=== PATIENT | female | born 1965 | race Caucasian/White ===

== ENCOUNTER 2016-12-30 03:40 | Emergency (ER) | payer OTHER, BC ==
[2016-12-30] MEDS ORDERED: Diphtheria,Pertussis(Acell),Tetanus Vaccine 0.5 ML Syringe IM ONE (04:05)
[2016-12-30] MEDS ORDERED: Acetaminophen/HYDROcodone 325-5 MG Tab PO ONE (04:06)
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
[2016-12-30] MEDS ORDERED: Silver Sulfadiazine 1% Crm 50 GM Tube TOP ONE (04:24)
[2016-12-30 05:00] VITALS: BP 118/88
== END 2016-12-30 04:45 | disposition home or self-care (01) ==
LOC: MERGE 03:40 → MW.ED 03:40
DX: T21.21XA Burn of second degree of chest wall, initial encounter (principal); T22.00XA Burn of unspecified degree of shoulder and upper limb, except wrist and hand, unspecified site, initial encounter; F17.210 Nicotine dependence, cigarettes, uncomplicated; X10.0XXA Contact with hot drinks, initial encounter; Z23 Encounter for immunization
CPT/HCPCS: 16020; 90471; 90715; 99283; A9270

== ENCOUNTER 2017-08-21 23:23 | Emergency (ER) | payer BC ==
[2017-08-21] MEDS ORDERED: Ketorolac 30 MG/ML SDV IVPUSH ONE (23:36)
[2017-08-21] MEDS ORDERED: Sodium Chloride 0.9% 1,000 ML IV ONE (23:36)
[2017-08-21] MEDS ORDERED: Ondansetron 4 MG/2 ML SDV IVPUSH ONE (23:36)
--- NOTE | 2017-08-21 23:38 | EDM.PDOC ---
ED HPI GENERAL MEDICAL PROBLEM - General Chief Complaint: Abdominal Pain Stated Complaint: ABD PAIN Time Seen by Provider: 08/21/17 23:33 - History of Present Illness INITIAL COMMENTS - FREE TEXT/NARRATIVE: HISTORY AND PHYSICAL: History of present illness: Patient is 52-year-old female presents concern of upper abdominal pain she's had this 1 week she's had some associated nausea she states she had some loose stools earlier week but that's resolved she states it does seem to be related to food she had no fever chills no chest pain or shortness of breath this is localized in her epigastrium and right upper quadrant she has had prior appendectomy she denies other surgery. Review of systems: As per history of present illness and below otherwise all systems reviewed and negative. Past medical history: As per history of present illness and as reviewed below otherwise noncontributory. Surgical history: As per history of present illness and as reviewed below otherwise noncontributory. Social history: No reported history of drug or alcohol abuse. Family history: As per history of present illness and as reviewed below otherwise noncontributory. Physical exam: HEENT: Atraumatic, normocephalic, pupils reactive, negative for conjunctival pallor or scleral icterus, mucous membranes moist, throat clear, neck supple, nontender, trachea midline. Lungs: Clear to auscultation, breath sounds equal bilaterally, chest nontender. Heart: S1S2, regular, negative for clicks, rubs, or JVD. Abdomen: Soft, nondistended, tenderness in epigastrium right upper quadrant to deep palpation no rebound or guarding. Negative for masses or hepatosplenomegaly. Negative for costovertebral tenderness. Pelvis: Stable nontender. Genitourinary: Deferred. Rectal: Deferred. Extremities: Atraumatic, negative for cords or calf pain. Neurovascular unremarkable. Neuro: Awake, alert, oriented. Cranial nerves II through XII unremarkable. Cerebellum unremarkable. Motor and sensory unremarkable throughout. Exam nonfocal. Diagnostics: CBC CMP troponin amylase lipase EKG chest x-ray right upper quadrant ultrasound Therapeutics: Normal saline 1 L bolus and Toradol 31 g IV Zofran for millirems IV Impression: #1 upper abdominal pain Definitive disposition and diagnosis as appropriate pending reevaluation and review of above. Right Upper Abdomen Pain Score (Numeric/FACES): 6 - Related Data Allergies Allergy/AdvReac Type Severity Reaction Status Date / Time No Known Allergies Allergy Verified 08/21/17 23:31 Home Meds: Home Meds . 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 Musculoskeletal History: Reports: None Neurological History: Reports: None Psychiatric History: Reports: None Endocrine/Metabolic History: Reports: None Hematologic History: Reports: None Dermatologic History: Reports: None - Infectious Disease History Infectious Disease History: Reports: None - Past Surgical History HEENT Surgical History: Reports: None Female Surgical History: Reports: None Social & Family History - Family History Family Medical History: Noncontributory - Tobacco Use Smoking Status *Q: Current Every Day Smoker Years of Tobacco use: 30 Packs/Tins Daily: 1 - Recreational Drug Use Recreational Drug Use: No ED ROS GENERAL - Review of Systems Review Of Systems: ROS reveals no pertinent complaints other than HPI. ED EXAM, GENERAL - Physical Exam Exam: See Below (See dictation) Course - Vital Signs Text/Narrative:: I discussed case with patient including nondiagnostic ultrasound of gallbladder patient understands the need for close follow-up with general surgery she'll be prescribed Cipro to be taken as prescribed diet as discussed and return as needed as discussed Last Recorded V/S: Last Vital Signs Temp 36.6 C 08/21/17 23:31 Pulse 69 08/21/17 23:31 Resp 18 08/21/17 23:31 BP 136/94 H 08/21/17 23:31 Pulse Ox 100 08/21/17 23:31 - Orders/Labs/Meds Orders: Active Orders 24 hr Category Date Time Status EKG Documentation Completion [RC] STAT Care 08/21/17 23:35 Active Abdomen Ltd [US] Stat Exams 08/22/17 23:36 Taken Chest 1V Frontal [CR] Stat Exams 08/21/17 23:36 Taken Labs: Laboratory Tests 08/21/17 08/21/17 Range/Units 23:50 23:50 WBC 7.09 (4.0-11.0) K/uL RBC 3.79 L (4.30-5.90) M/uL Hgb 12.1 (12.0-16.0) g/dL Hct 36.2 (36.0-46.0) % MCV 95.5 (80.0-98.0) fL MCH 31.9 (27.0-32.0) pg MCHC 33.4 (31.0-37.0) g/dL RDW Std Deviation 44.2 (28.0-62.0) fl RDW Coeff of [place] 13 (11.0-15.0) % Plt Count 272 (150-400) K/uL MPV 9.50 (7.40-12.00) fL Neut % (Auto) 48.5 (48.0-80.0) % Lymph % (Auto) 37.8 (16.0-40.0) % Patrick % (Auto) 9.3 (0.0-15.0) % Eos % (Auto) 3.8 (0.0-7.0) % Baso % (Auto) 0.6 (0.0-1.5) % Neut # (Auto) 3.4 (1.4-5.7) K/uL Lymph # (Auto) 2.7 H (0.6-2.4) K/uL Patrick # (Auto) 0.7 (0.0-0.8) K/uL Eos # (Auto) 0.3 (0.0-0.7) K/uL Baso # (Auto) 0.0 (0.0-0.1) K/uL Nucleated RBC % 0.0 /100WBC Nucleated RBCs # 0 K/uL Sodium 140 (136-146) mmol/L Potassium 3.7 (3.5-5.1) mmol/L Chloride 109 (98-110) mmol/L Carbon Dioxide 25 (21-31) mmol/L BUN 15 (6.0-23.0) mg/dL Creatinine 0.8 (0.6-1.5) mg/dL Est Cr Clr Drug Dosing TNP Estimated GFR (MDRD) > 60.0 ml/min Glucose 146 H (60-110) mg/dL Calcium 8.8 (8.8-10.8) mg/dL Total Bilirubin 0.5 (0.1-1.5) mg/dL AST 43 H (5-40) IU/L ALT 24 (8-54) IU/L Alkaline Phosphatase 81 (40-150) Troponin I < 0.10 (0.0-0.29) NG/ML Total Protein 6.2 (6.0-8.0) g/dL Albumin 3.9 (3.5-5.0) g/dL Globulin 2.3 (2.0-3.5) g/dL Albumin/Globulin Ratio 1.7 (1.3-2.8) Amylase 44 (10-90) U/L Lipase 62 (7-80) U/L Meds: Medications Discontinued Medications Generic Name Dose Route Start Last Admin Trade Name Freq PRN Reason Stop Dose Admin Sodium Chloride 1,000 mls @ 999 mls/hr 08/21/17 23:36 08/21/17 23:46 Normal Saline IV 08/22/17 00:36 999 mls/hr STAT ONE Administration Ketorolac Tromethamine 30 mg 08/21/17 23:36 08/21/17 23:52 Toradol IVPUSH 08/21/17 23:37 30 mg ONETIME ONE Administration Ondansetron HCl 4 mg 08/21/17 23:36 08/21/17 23:53 Zofran IVPUSH 08/21/17 23:37 4 mg ONETIME ONE Administration Departure - Departure Time of Disposition: 01:30 Disposition: Home, Self-Care 01 Condition: Good Clinical Impression: Abdominal pain, Biliary colic - Discharge Information Referrals: PCP,None [Primary Care Provider] - Forms: ED Department Discharge Additional Instructions: The following information is given to patients seen in the emergency department who are being discharged to home. This information is to outline your options for follow-up care. We provide all patients seen in our emergency department with a follow-up referral. The need for follow-up, as well as the timing and circumstances, are variable depending upon the specifics of your emergency department visit. If you don't have a primary care physician on staff, we will provide you with a referral. We always advise you to contact your personal physician following an emergency department visit to inform them of the circumstance of the visit and for follow-up with them and/or the need for any referrals to a consulting specialist. The emergency department will also refer you to a specialist when appropriate. This referral assures that you have the opportunity for followup care with a specialist. All of these measure are taken in an effort to provide you with optimal care, which includes your followup. Under all circumstances we always encourage you to contact your private physician who remains a resource for coordinating your care. When calling for followup care, please make the office aware that this follow-up is from your recent emergency room visit. If for any reason you are refused follow-up, please contact the [facility] emergency department at and asked to speak to the emergency department charge nurse. [facility] Specialty Care - General Surgery Professional Building [address] [place] [address], [address] [place] [address] Cipro as prescribed diet as discussed clear liquids 24 hours return as needed as discussed] - My Orders Last 24 Hours: My Active Orders 08/21/17 23:35 EKG Documentation Completion [RC] STAT 08/21/17 23:36 Chest 1V Frontal [CR] Stat 08/22/17 23:36 Abdomen Ltd [US] Stat - Assessment/Plan Last 24 Hours: My Active Orders 08/21/17 23:35 EKG Documentation Completion [RC] STAT 08/21/17 23:36 Chest 1V Frontal [CR] Stat 08/22/17 23:36 Abdomen Ltd [US] Stat
[2017-08-22 00:27] LABS: CHLORIDE,CL 109 mmol/L (98-110); SODIUM,NA 140 mmol/L (136-146)
[2017-08-22 01:55] VITALS: BP 103/61
--- NOTE | 2017-08-22 14:56 | CR ---
EXAM DATE: 08/21/17 PATIENT'S AGE: 52 Patient: NIKKI ERICKSON Facility: [place], [place] Site . Site : 1965 Study: XRay Chest [id number]/8/[id number] 12:22:56 AM Ordering Physician: Zeeshan Marie Final Report: INDICATION: ABD PAIN TECHNIQUE: Chest 1 view. COMPARISON: None. FINDINGS: Cardiovascular and mediastinum: Heart size and vasculature are normal in caliber and appearance. Mediastinum is within normal limits. Lungs and pleural space: Lungs are clear. No sign of infiltrate or mass. No sign of pleural effusion. No pneumothorax. Bones and soft tissues: No significant findings. IMPRESSION: Unremarkable chest. Dictated by: Kenroy Simpson MD @ 08/22/2017 00:24:52 (Electronic Signature) Report Signed by Proxy. [facility]ITALAugust
--- NOTE | 2017-08-22 14:57 | US ---
EXAM DATE: 08/21/17 PATIENT'S AGE: 52 Patient: NIKKI ERICKSON Facility: [place], [place] Site . Site : 1965 Study: US Abdomen [id number]/8/[id number] 1:05:05 AM Ordering Physician: Zeeshan Marie Final Report: INDICATION: Abdominal pain. TECHNIQUE: Ultrasound abdomen limited. Sonographic images of the right upper quadrant were obtained using ceballos-scale and color Doppler images. COMPARISON: None. FINDINGS: Liver: Homogeneous in echotexture. No focal lesion. Normal directional flow in the portal vein. Gallbladder: Echogenic non shadowing focus in the neck of the gallbladder is indeterminate. Apparent diffuse gallbladder wall thickening. Oval hypoechoic focus adjacent to the gallbladder, for example as seen on image 43. Common bile duct: 5 mm. Pancreas: Unremarkable as imaged. Right kidney: 9.4 cm in length. No hydronephrosis. 1 cm cyst suspected in the upper pole. Visualized aorta and IVC are normal in appearance. IMPRESSION: Diffuse gallbladder wall thickening may be related to acute or chronic cholecystitis. Additional differential consideration would include diffuse adenomyomatosis. Echogenic focus near the neck of the gallbladder is non shadowing. This may represent a gallbladder fold versus non shadowing stone or sludge ball. No evidence of biliary ductal dilatation. Dictated by Jani Alejandro MD @ 08/22/2017 1:19:29 AM Dictated by: Jani Alejandro MD @ 08/22/2017 01:19:55 (Electronic Signature) Report Signed by Proxy. [facility] SERVICESAugust
== END 2017-08-22 01:55 | disposition home or self-care (01) ==
LOC: MW.ED 23:23
DX: K80.50 Calculus of bile duct without cholangitis or cholecystitis without obstruction (principal); F17.210 Nicotine dependence, cigarettes, uncomplicated; Z90.49 Acquired absence of other specified parts of digestive tract
CPT/HCPCS: 71010; 76705; 80053; 82150; 83690; 84484; 85025; 93005; 96361; 96374; 96375; 99285; J1885; J2405; J7040; 99283

== ENCOUNTER 2017-09-03 00:24 | Emergency (ER) | payer BC ==
[2017-09-03] MEDS ORDERED: Sodium Chloride 0.9% 10 ML Syringe FLUSH PRN (00:45)
[2017-09-03] MEDS ORDERED: Sodium Chloride 0.9% 2.5 ML Syringe FLUSH PRN (00:45)
[2017-09-03] MEDS ORDERED: Ondansetron 4 MG/2 ML SDV IVPUSH ONE (00:45)
[2017-09-03] MEDS ORDERED: HYDROmorphone 2 MG/ML Syringe IVPUSH ONE (00:45)
[2017-09-03] MEDS ORDERED: Sodium Chloride 0.9% 1,000 ML IV ONE (00:45)
--- NOTE | 2017-09-03 00:54 | EDM.PDOC ---
ED HPI GENERAL MEDICAL PROBLEM - General Chief Complaint: Abdominal Pain Stated Complaint: UPPER STOMACH PAIN Time Seen by Provider: 09/03/17 00:33 - History of Present Illness INITIAL COMMENTS - FREE TEXT/NARRATIVE: HISTORY AND PHYSICAL: History of present illness: The patient is a 52-year-old female who was seen here in the emergency department on August 22 and had an ultrasound for abdominal pain which revealed a thickened gallbladder wall but a normal common bile duct and no evidence of any discrete stones. The patient was given follow-up with Dr. Almonte and she has not seen him yet and has an appointment this Sunday but did have an outpatient HIDA scan on August 30 which I reviewed and indicates that there is no gallbladder function. The patient said she has been doing very well with very minimal pain along she's been watching her diet and today she had indiscretions including eating a burger cheese and mayonnaise. She presents with right upper quadrant pain that radiates to her shoulder but no chest pain no shortness of breath no diffuse abdominal pain and slight nausea. No diarrhea no black or bloody stools no fevers or chills. Patient has no medications at home to handle the pain and did not take anything prior to coming here. Review of systems: As per history of present illness and below otherwise all systems reviewed and negative. Past medical history: As per history of present illness and as reviewed below otherwise noncontributory. Surgical history: As per history of present illness and as reviewed below otherwise noncontributory. Social history: No reported history of drug or alcohol abuse. Family history: As per history of present illness and as reviewed below otherwise noncontributory. Physical exam: General: Well-developed well-nourished female who is nontoxic and looks somewhat uncomfortable in the room but is speaking clearly and easily. Her vital signs of the note by me HEENT: Atraumatic, normocephalic, negative for conjunctival pallor or scleral icterus, mucous membranes moist, throat clear, neck supple, nontender, trachea midline. Lungs: Clear to auscultation, breath sounds equal bilaterally, chest nontender. Heart: S1S2, regular rate and rhythm no overt murmurs Abdomen: Soft, nondistended, there is tenderness with deep palpation in the right upper quadrant without rebound or guarding and bowel sounds are slightly hypoactive. Negative for masses or hepatosplenomegaly. Negative for costovertebral tenderness. Pelvis: Stable nontender. Genitourinary: Deferred. Rectal: Deferred. Extremities: Atraumatic, negative for cords or calf pain. Neurovascular unremarkable. Neuro: Awake, alert, oriented. Cranial nerves II through XII unremarkable. Cerebellum unremarkable. Motor and sensory unremarkable throughout. Exam nonfocal. Diagnostics: CBC CMP amylase lipase UA Testing results done earlier this month were reviewed by me, gallbladder ultrasound and HIDA Therapeutics: IV fluids Dilaudid Zofran Patient is much improved and I discussed all testing results with her and at bedside. She has a scheduled appointment a day and a half in the clinic with Dr. Almonte to discuss her scan results and cholecystectomy. I will give her some tramadol to use for discomfort and have strongly advised her on dietary restrictions. She is aware of reasons to return to the ER Impression: Episode of Biliary colic with history of biliary dyskinesia improving Definitive disposition and diagnosis as appropriate pending reevaluation and review of above. 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 Musculoskeletal History: Reports: None Neurological History: Reports: None Psychiatric History: Reports: None Endocrine/Metabolic History: Reports: None Hematologic History: Reports: None Immunologic History: Reports: None Oncologic (Cancer) History: Reports: None Dermatologic History: Reports: None - Infectious Disease History Infectious Disease History: Reports: Chicken Pox - Past Surgical History Head Surgeries/Procedures: Reports: None HEENT Surgical History: Reports: None Respiratory Surgical History: Reports: None GI Surgical History: Reports: Appendectomy Female Surgical History: Reports: None Social & Family History - Family History Family Medical History: Noncontributory - Tobacco Use Smoking Status *Q: Current Every Day Smoker Years of Tobacco use: 20 Packs/Tins Daily: 1 - Caffeine Use Caffeine Use: Reports: Coffee, Soda, Tea - Recreational Drug Use Recreational Drug Use: No ED ROS GENERAL - Review of Systems Review Of Systems: ROS reveals no pertinent complaints other than HPI. ED EXAM, GENERAL - Physical Exam Exam: See Below (See dictation) Course - Vital Signs Last Recorded V/S: Last Vital Signs Temp 36.6 C 09/03/17 00:31 Pulse 82 09/03/17 01:05 Resp 17 09/03/17 01:05 BP 130/82 09/03/17 01:05 Pulse Ox 98 09/03/17 01:05 - Orders/Labs/Meds Orders: Active Orders 24 hr Category Date Time Status Sodium Chloride 0.9% [Normal Saline] 1,000 ml Med 09/03/17 00:45 Active IV STAT Sodium Chloride 0.9% [Saline Flush] Med 09/03/17 00:45 Active 10 ml FLUSH ASDIRECTED PRN Sodium Chloride 0.9% [Saline Flush] Med 09/03/17 00:45 Active 2.5 ml FLUSH ASDIRECTED PRN Saline Lock Insert [OM.PC] Stat Oth 09/03/17 00:45 Ordered Medication Orders Sodium Chloride (Normal Saline) 1,000 mls @ 999 mls/hr IV STAT ONE Stop: 09/03/17 01:45 Last Admin: 09/03/17 00:57 Dose: 999 mls/hr Sodium Chloride (Saline Flush) 10 ml FLUSH ASDIRECTED PRN PRN Reason: Keep Vein Open Last Admin: 09/03/17 01:03 Dose: 10 ml Sodium Chloride (Saline Flush) 2.5 ml FLUSH ASDIRECTED PRN PRN Reason: Keep Vein Open Last Admin: 09/03/17 00:57 Dose: 2.5 ml Labs: Laboratory Tests 09/03/17 09/03/17 Range/Units 00:38 00:38 WBC 10.87 (4.0-11.0) K/uL RBC 4.22 L (4.30-5.90) M/uL Hgb 13.3 (12.0-16.0) g/dL Hct 40.4 (36.0-46.0) % MCV 95.7 (80.0-98.0) fL MCH 31.5 (27.0-32.0) pg MCHC 32.9 (31.0-37.0) g/dL RDW Std Deviation 42.1 (28.0-62.0) fl RDW Coeff of [place] 12 (11.0-15.0) % Plt Count 333 (150-400) K/uL MPV 9.10 (7.40-12.00) fL Neut % (Auto) 40.4 L (48.0-80.0) % Lymph % (Auto) 48.4 H (16.0-40.0) % Simpson % (Auto) 7.9 (0.0-15.0) % Eos % (Auto) 3.0 (0.0-7.0) % Baso % (Auto) 0.3 (0.0-1.5) % Neut # (Auto) 4.4 (1.4-5.7) K/uL Lymph # (Auto) 5.3 H (0.6-2.4) K/uL Simpson # (Auto) 0.9 H (0.0-0.8) K/uL Eos # (Auto) 0.3 (0.0-0.7) K/uL Baso # (Auto) 0.0 (0.0-0.1) K/uL Sodium 141 (136-146) mmol/L Potassium 4.2 (3.5-5.1) mmol/L Chloride 105 (98-110) mmol/L Carbon Dioxide 27 (21-31) mmol/L BUN 18 (6.0-23.0) mg/dL Creatinine 0.8 (0.6-1.5) mg/dL Est Cr Clr Drug Dosing 69.42 mL/min Estimated GFR (MDRD) > 60.0 ml/min Glucose 108 (60-110) mg/dL Calcium 10.1 (8.8-10.8) mg/dL Total Bilirubin 0.5 (0.1-1.5) mg/dL AST 21 (5-40) IU/L ALT 17 (8-54) IU/L Alkaline Phosphatase 89 (40-150) Total Protein 7.2 (6.0-8.0) g/dL Albumin 4.4 (3.5-5.0) g/dL Globulin 2.8 (2.0-3.5) g/dL Albumin/Globulin Ratio 1.6 (1.3-2.8) Amylase 63 (10-90) U/L Lipase 70 (7-80) U/L Meds: Medications Generic Name Dose Route Start Last Admin Trade Name Freq PRN Reason Stop Dose Admin Sodium Chloride 1,000 mls @ 999 mls/hr 09/03/17 00:45 09/03/17 00:57 Normal Saline IV 09/03/17 01:45 999 mls/hr STAT ONE Administration Sodium Chloride 10 ml 09/03/17 00:45 09/03/17 01:03 Saline Flush FLUSH 10 ml ASDIRECTED PRN Administration Keep Vein Open Sodium Chloride 2.5 ml 09/03/17 00:45 09/03/17 00:57 Saline Flush FLUSH 2.5 ml ASDIRECTED PRN Administration Keep Vein Open Discontinued Medications Generic Name Dose Route Start Last Admin Trade Name Freq PRN Reason Stop Dose Admin Hydromorphone HCl 1 mg 09/03/17 00:45 09/03/17 00:59 Dilaudid IVPUSH 09/03/17 00:46 1 mg ONETIME ONE Administration Ondansetron HCl 4 mg 09/03/17 00:45 09/03/17 00:59 Zofran IVPUSH 09/03/17 00:46 4 mg ONETIME ONE Administration Departure - Departure Time of Disposition: 01:26 Disposition: Home, Self-Care 01 Condition: Good Clinical Impression: Biliary colic - Discharge Information Referrals: Michelle Baltazar NP [Primary Care Provider] - Forms: ED Department Discharge Additional Instructions: The following information is given to patients seen in the emergency department who are being discharged to home. This information is to outline your options for follow-up care. We provide all patients seen in our emergency department with a follow-up referral. The need for follow-up, as well as the timing and circumstances, are variable depending upon the specifics of your emergency department visit. If you don't have a primary care physician on staff, we will provide you with a referral. We always advise you to contact your personal physician following an emergency department visit to inform them of the circumstance of the visit and for follow-up with them and/or the need for any referrals to a consulting specialist. The emergency department will also refer you to a specialist when appropriate. This referral assures that you have the opportunity for followup care with a specialist. All of these measure are taken in an effort to provide you with optimal care, which includes your followup. Under all circumstances we always encourage you to contact your private physician who remains a resource for coordinating your care. When calling for followup care, please make the office aware that this follow-up is from your recent emergency room visit. If for any reason you are refused follow-up, please contact the [facility] emergency department at and ask to speak to the emergency department charge nurse. [facility] Specialty Care-General Surgery Professional [address] [address] Please keep your appointment with Dr. Almonte in the clinic on Sunday and try to avoid fatty foods as we discussed. Please eat a bland diet. Push hydration and rest. Use the tramadol you have been prescribed to be Insty Meds for pain along with Tylenol or ibuprofen. Return to ER as needed and as discussed - My Orders Last 24 Hours: My Active Orders 09/03/17 00:45 Sodium Chloride 0.9% [Normal Saline] 1,000 ml IV STAT Sodium Chloride 0.9% [Saline Flush] 10 ml FLUSH ASDIRECTED PRN Sodium Chloride 0.9% [Saline Flush] 2.5 ml FLUSH ASDIRECTED PRN Saline Lock Insert [OM.PC] Stat - Assessment/Plan Last 24 Hours: My Active Orders 09/03/17 00:45 Sodium Chloride 0.9% [Normal Saline] 1,000 ml IV STAT Sodium Chloride 0.9% [Saline Flush] 10 ml FLUSH ASDIRECTED PRN Sodium Chloride 0.9% [Saline Flush] 2.5 ml FLUSH ASDIRECTED PRN Saline Lock Insert [OM.PC] Stat
[2017-09-03 01:05] VITALS: BP 130/82
[2017-09-03 01:10] LABS: CHLORIDE,CL 105 mmol/L (98-110); SODIUM,NA 141 mmol/L (136-146)
== END 2017-09-03 02:09 | disposition home or self-care (01) ==
LOC: MW.ED 00:24
DX: K80.50 Calculus of bile duct without cholangitis or cholecystitis without obstruction (principal); F17.210 Nicotine dependence, cigarettes, uncomplicated
CPT/HCPCS: 80053; 82150; 83690; 85025; 96361; 96374; 96375; 99284; J1170; J2405; J7040

== ENCOUNTER 2017-09-10 06:24 | Day surgery (SDC) | payer BC ==
[~2017-09-10 06:24] MED LIST: Lactated Ringers 1,000 ML IV SCH; cefOXitin 1 GM in Premix Bag 1 BAG IV SCH
[2017-09-10] MEDS ORDERED: Scopolamine 1.5 MG Transdermal Patch TOP ONE (07:07)
[2017-09-10] MEDS ORDERED: Scopolamine 1.5 MG Transdermal Patch TRDERM PRN (07:10)
[2017-09-10] MEDS ORDERED: Midazolam 1 MG/ML 2 ML SDV ONE (07:14)
[2017-09-10] MEDS ORDERED: Propofol 200 MG/20 ML SDV ONE (07:14)
[2017-09-10] MEDS ORDERED: fentaNYL 100 MCG/2 ML SDV ONE (07:14)
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
[2017-09-10] MEDS ORDERED: Ketorolac 30 MG/ML SDV ONE (07:17)
[2017-09-10] MEDS ORDERED: Lidocaine 2% 5 ML SDV ONE (07:17)
[2017-09-10] MEDS ORDERED: Rocuronium 10 MG/ML 10 ML Syringe ONE (07:17)
[2017-09-10] MEDS ORDERED: Ondansetron 4 MG/2 ML SDV ONE (07:17)
[2017-09-10] MEDS ORDERED: Neostigmine Methylsulfate 1 MG/ML 5 ML Syringe ONE (07:17)
[2017-09-10] MEDS ORDERED: diphenhydrAMINE 50 MG/ML SDV ONE (07:17)
[2017-09-10] MEDS ORDERED: cefOXitin 1 GM Vial ONE (07:19)
[2017-09-10] MEDS ORDERED: Bupivacaine 0.5% 30 ML SDV ONE (07:19)
[2017-09-10] MEDS ORDERED: fentaNYL 100 MCG/2 ML SDV IVPUSH PRN (07:22)
[2017-09-10] MEDS ORDERED: ceFAZolin 1 GM Vial ONE (07:35)
[2017-09-10] MEDS ORDERED: HYDROmorphone 2 MG/ML Syringe ONE (08:02)
[2017-09-10] MEDS ORDERED: ePHEDrine 50 MG/ML SDV ONE ×2 (08:14→08:15)
--- NOTE | 2017-09-10 09:09 | PCM.OPNOTE ---
<Frank Huerta - Last Filed: 09/10/17 09:06> - General Post-Op/Procedure Note Date of Surgery/Procedure: 09/10/17 Operative Procedure(s): Laparoscopic Cholecystectomy Findings: Edematous Gallbladder Pre Op Diagnosis: Biliary Dyskinesia Post-Op Diagnosis: Biliary Dyskinesia Anesthesia Technique: General ET Tube (ASA II) Primary Surgeon: Pilo Almonte Production Finisher: Frank Huerta Fluid Replacement, Intraop: 1,200 Output, Urine Amount: 25 EBL in mLs: 5 Complications: None Condition: Good <Pilo Almonte - Last Filed: 09/10/17 09:13> - General Post-Op/Procedure Note Free Text/Narrative:: Intake & Output 09/09/17 09/10/17 09/10/17 19:59 03:59 11:59 Intake Total 1200 Output Total 25 Balance 1175 Dictation [id number] CPT CODE 14585
[2017-09-10] MEDS ORDERED: Benzocaine/Cetylpyridinium/Menthol Lozenge MUCMEM PRN (09:12)
[2017-09-10] MEDS ORDERED: Acetaminophen/HYDROcodone 325-10 MG Tab PO PRN (09:13)
[2017-09-10] MEDS ORDERED: Morphine 10 MG/ML Syringe IVPUSH PRN (09:14)
[2017-09-10] MEDS ORDERED: Acetaminophen 500 MG Tab PO SCH (09:15)
[2017-09-10] MEDS ORDERED: Ondansetron 4 MG/2 ML SDV IVPUSH PRN (09:17)
[2017-09-10 11:53] VITALS: BP 114/80
--- NOTE | 2017-09-10 15:13 | OR ---
SURGEON: Pilo Almonte M.D. DATE OF PROCEDURE: 09/10/2017 OPERATION PERFORMED: Laparoscopic cholecystectomy. ASPHALT HEATER TENDER: Dr. Huerta, PGY-2. ANESTHESIA: General endotracheal ASA CLASSIFICATION: II. PREOPERATIVE DIAGNOSES: Chronic right upper quadrant pain, abnormal HIDA scan, biliary dyskinesia. POSTOPERATIVE DIAGNOSES: Chronic right upper quadrant pain, abnormal HIDA scan, biliary dyskinesia. ESTIMATED BLOOD LOSS: 10 mL. INTRAOPERATIVE FLUID REPLACEMENT: 1200 mL of crystalloid. DESCRIPTION OF PROCEDURE: The patient was taken to the operating room and placed on the operating table in the supine position. Time-out was called for appropriate identification of patient and procedure. Thigh-high TEDs and sequential compression boots were placed. Following satisfactory attainment of general endotracheal anesthesia, a Kumar catheter was placed in the patient's urinary bladder. The abdomen was prepped with DuraPrep solution and sterile drapes were applied. The skin just below the umbilicus was infiltrated with 0.5% Marcaine solution. The skin incision was made and deepened through the subcutaneous tissue obtaining hemostasis with the use of electrocautery. The Veress needle was introduced into the peritoneal cavity. Saline drop test was positive. Carbon dioxide pneumoperitoneum was established with the release set at 13 cm of water. Once we had a satisfactory pneumoperitoneum, a 12 mm subxiphoid, 5 mm midclavicular, and 5 mm anterior axillary ports were placed. Each incision had preemptively been infiltrated with 0.5% Marcaine solution. The gallbladder was grasped and adhesions were taken down to identify the cholecystohepatic triangle. Once that was accomplished, the cystic duct was dissected free and good critical view was obtained. The cystic duct was then hemoclipped x1 on the gallbladder side and x2 on the common duct side before division with the laparoscopic Metzenbaum. Cystic arteries were identified, there were two. Each was serially hemoclipped and divided. The gallbladder was then dissected away from its bed using electrocautery. Once the gallbladder was amputated, this was placed in an Endopouch. The right upper quadrant was irrigated with sterile saline solution and all fluid was aspirated. Surgicel was placed into the bed of the gallbladder. The right hemidiaphragm was irrigated with 250 mL of saline containing 20 mL of 0.5% Marcaine solution. That fluid was left in place. Under camera vision, the Endopouch containing gallbladder and 12 mm subxiphoid ports were removed. Again under camera vision, 5 mm midclavicular and 5 mm anterior axillary ports were removed and finally, the infraumbilical camera and port were removed. The wounds were inspected for hemostasis and small bleeding sites were electrocoagulated. The infraumbilical and subxiphoid incisions were closed in 2 layers approximating the subcutaneous tissue with 3-0 Polysorb and the skin with subcuticular 4-0 Monocryl. The midclavicular and anterior axillary incisions were closed with subcuticular 4-0 Monocryl. All incisions were Steri-Stripped and dressed with sterile Tegaderm pads. Sponge, needle, and instrument counts were all correct. The patient tolerated the procedure well. Prior to emergence from anesthesia, the Kumar catheter was removed. Following emergence from anesthesia and extubation, the patient was taken to recovery room in satisfactory condition. HARSHAL JARA /[id number]
== END 2017-09-10 11:30 | disposition home or self-care (01) ==
LOC: MW.SDS 06:24
PROVIDERS: ATTEND Surgery
DX: K82.8 Other specified diseases of gallbladder (principal); E78.00 Pure hypercholesterolemia, unspecified; F17.210 Nicotine dependence, cigarettes, uncomplicated; Z90.89 Acquired absence of other organs; Z90.49 Acquired absence of other specified parts of digestive tract; Z82.3 Family history of stroke; Z80.0 Family history of malignant neoplasm of digestive organs; Z87.828 Personal history of other (healed) physical injury and trauma
CPT/HCPCS: 47562; A9270; J0694; J1170; J1200; J1885; J2250; J2405; J3010; J7120; 00790; 88304; J0690; J2704

== ENCOUNTER 2018-11-01 07:47 | Day surgery (SDC) | payer BC ==
[~2018-11-01 07:47] MED LIST changes: -cefOXitin 1 GM in Premix Bag 1 BAG IV SCH
[2018-11-01] MEDS ORDERED: Propofol 200 MG/20 ML SDV ONE (08:10)
[2018-11-01] MEDS ORDERED: Lidocaine 2% 5 ML SDV ONE (08:10)
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
--- NOTE | 2018-11-01 09:52 | PCM.OPNOTE ---
- General Post-Op/Procedure Note Date of Surgery/Procedure: 11/01/18 Operative Procedure(s): Colonoscopy Pre Op Diagnosis: Left lower quadrant pain. Family history of colon cancer. Recent episode of diverticulitis. Desire for colorectal cancer screening. Post-Op Diagnosis: Sigmoid diverticulosis. Anesthesia Technique: MAC (ASA II) Primary Surgeon: Pilo Almonte Condition: Good Free Text/Narrative:: DICTATION [id number] CPT CODE [id number]
[2018-11-01] MEDS ORDERED: Lactated Ringers 1,000 ML IV SCH (10:00)
--- NOTE | 2018-11-01 10:09 | PCM.POSTAN ---
POST ANESTHESIA ASSESSMENT - MENTAL STATUS Mental Status: Alert, Oriented - RESPIRATORY Respiratory Status: Respiratory Rate WNL, Airway Patent, O2 Saturation Stable - CARDIOVASCULAR CV Status: Pulse Rate WNL, Blood Pressure Stable - GASTROINTESTINAL GI Status: No Symptoms - POST OP HYDRATION Hydration Status: Adequate & Stable
[2018-11-01 10:14] VITALS: BP 108/76
--- NOTE | 2018-11-01 10:24 | PCM48HPAN ---
Post Anesthesia Note - EVALUATION WITHIN 48HRS OF ANESTHETIC Vital Signs in Normal Range: Yes Patient Participated in Evaluation: Yes Respiratory Function Stable: Yes Airway Patent: Yes Cardiovascular Function Stable: Yes Hydration Status Stable: Yes Pain Control Satisfactory: Yes Nausea and Vomiting Control Satisfactory: Yes Mental Status Recovered: Yes Resp Rate: 13
--- NOTE | 2018-11-01 11:51 | OR ---
SURGEON: Pilo Almonte M.D. DATE OF PROCEDURE: 11/01/2018 OPERATION PERFORMED: Colonoscopy. ANESTHESIA: MAC. ASA CLASSIFICATION: II. PREOPERATIVE DIAGNOSES: 1. Left lower quadrant pain. 2. Family history of colon cancer. 3. Desire for colorectal cancer screening. POSTOPERATIVE DIAGNOSIS: Sigmoid diverticulosis. DESCRIPTION OF PROCEDURE: The patient was taken to the endoscopy room and positioned on the endoscopy table in the left lateral decubitus position. Time-out was called for appropriate identification of the patient and procedure. Monitored anesthesia care was provided. The colonoscope was inserted into the rectum and advanced with minimal difficulty to the cecum where the colonoscope was retroflexed to visualize the ascending colon from below. The colonoscope was then straightened and slowly withdrawn. The cecum, ascending colon, hepatic flexure, transverse colon, splenic flexure, descending colon were very well visualized. There were no tumors, polyps, diverticula, or angiodysplastic changes. Sigmoid colon demonstrates moderate diverticular change. No stricture, spasm, or bleeding was noted. No polyps were encountered in the sigmoid colon. The colonoscope was withdrawn to the rectum and retroflexed to visualize the anal orifice from above. No tumors or polyps were seen and there were no acute hemorrhoidal changes. The colonoscope was then straightened, the rectum aspirated, and the colonoscope removed. The patient tolerated the procedure well and was taken to recovery room in stable condition. HARSHAL JARA /[id number]
== END 2018-11-01 10:30 | disposition home or self-care (01) ==
LOC: MW.SDS 07:47
PROVIDERS: ATTEND Surgery
DX: R10.32 Left lower quadrant pain (principal); K57.30 Diverticulosis of large intestine without perforation or abscess without bleeding; E78.00 Pure hypercholesterolemia, unspecified; E78.1 Pure hyperglyceridemia; F17.210 Nicotine dependence, cigarettes, uncomplicated; Z80.0 Family history of malignant neoplasm of digestive organs
CPT/HCPCS: 45378; J2001; J2704; J7120